=== PATIENT | female | born 1955 | race Caucasian/White ===

== ENCOUNTER 2022-02-01 05:32 | Outpatient (CLI) | payer MEDICARE ==
[~2022-02-01] VITALS: Ht 165.1 cm; Wt 84.0 kg
[2022-02-01] MEDS ORDERED: LEVO100C4 PO (16:30)
[2022-02-01] MEDS ORDERED: FURO20TA4 PO (16:30)
[2022-02-01] MEDS ORDERED: FOSI10TA PO (16:30)
[2022-02-01] MEDS ORDERED: FAMO20TA3 PO (16:30)
[2022-02-01] MEDS ORDERED: FLUT9.9S NS (16:30)
[2022-02-01] MEDS ORDERED: WARF6TAB49 PO (16:30)
[2022-02-01] MEDS ORDERED: NFD60TCR PO (16:30)
[2022-02-01] MEDS ORDERED: ATOR20TA66 PO (16:30)
[2022-02-01] MEDS ORDERED: MONT-40 PO (16:30)
== END 2022-02-01 16:37 | disposition home or self-care (01) ==
LOC: PREOP 05:32
PROVIDERS: ATTEND Podiatrist Foot & Ankle Surgery
DX: Z01.818 Encounter for other preprocedural examination (principal)

== ENCOUNTER 2022-02-07 07:25 | Day surgery (SDC) | payer MEDICARE ==
[~2022-02-07] VITALS: Ht 165.1 cm; Wt 84.0 kg
[2022-02-07] VITALS (11 sets, daily range): BP systolic 102–135; BP diastolic 53–85
[~2022-02-07 07:25] MED LIST: ATOR20TA66 PO; FAMO20TA3 PO; FLUT9.9S NS; FOSI10TA PO; FURO20TA4 PO; LEVO100C4 PO; MONT-40 PO; NFD60TCR PO; WARF6TAB49 PO
[2022-02-07] MEDS ORDERED: BUPIVACAINE 0.5% 30 ML (SENSORCAINE) VIAL ONE ×2 (07:43→08:11)
[2022-02-07] MEDS ORDERED: LIDOCAINE 1% INJ 20 ML VIAL ONE (07:43)
[2022-02-07] MEDS ORDERED: VANCOMYCIN INJECTION 1,000 MG in NS (IVPB) 250 ML IV ONE (07:45)
[2022-02-07] MEDS ORDERED: proPOfol 200 MG/20 ML (DIPRIVAN) VIAL IV ONE (07:58)
[2022-02-07] MEDS ORDERED: ONDANSETRON 4 MG/2 ML (SDV) Z0FRAN ONE (07:58)
[2022-02-07] MEDS ORDERED: LIDOCAINE PF 2% 5 ML (XYLOCAINE) VIAL ONE (07:58)
[2022-02-07] MEDS ORDERED: MIDAZOLAM 2 MG/2 ML (VERSED) VIAL ONE (07:58)
[2022-02-07] MEDS ORDERED: SEVOFLURANE (ULTANE) 15 ML INHAL SOLN ONE ×2 (07:58→10:27)
[2022-02-07] MEDS ORDERED: fentaNYL INJ 100 MCG/2 ML AMP ONE (07:58)
[2022-02-07] MEDS: LACTATED RINGERS 1,000 ML IV PRN ×2 (08:20→10:05)
--- NOTE | 2022-02-07 08:50 | Progress Note-Pre Operative ---
Pre-Operative Progress Note H&P Reviewed The H&P was reviewed, patient examined and no changes noted. Date Seen by Provider: Feb 07, 2022 Time Seen by Provider: 08:48 Date H&P Reviewed: Feb 07, 2022 Time H&P Reviewed: 08:48 Pre-Operative Diagnosis: Hallux Valgus, 2nd Hammertoe, left TERRELL,SILAS Q DPM Feb 07, 2022 08:50
[2022-02-07] MEDS ORDERED: BACITRACIN OINTMENT 28 GM TUBE ONE (09:20)
--- NOTE | 2022-02-07 10:39 | Progress Note-Post Operative ---
Post-Operative Progess Note Surgeon (s)/Pharmaceutical Analyst (s) Surgeon SILAS TEJADA DPM Pharmaceutical Analyst: none Pre-Operative Diagnosis Hallux Valgus, 2nd Hammertoe, left Post-Operative Diagnosis Same Procedure & Operative Findings Date of Procedure 02/07/22 Procedure Performed/Findings Kapil Bunionectomy, reduction of 2nd Hammertoe, left foot Anesthesia Type General Estimated Blood Loss Estimated blood loss (mL): Minimal Specimens/Packing Specimens Removed 1st metatarsal head exostosis SILAS TEJADA DPM Feb 07, 2022 10:39
[2022-02-07] MEDS ORDERED: ACHD5005 PO (10:42)
--- NOTE | 2022-02-07 10:44 | Anesthesia-General Post-Op ---
General Patient Condition Mental Status/LOC: Same as Preop Cardiovascular: Satisfactory Nausea/Vomiting: Absent Respiratory: Satisfactory Pain: Controlled Complications: Absent Post Op Complications Complications None Follow Up Care/Instructions Patient Instructions None needed. Anesthesia/Patient Condition Patient Condition Patient is doing well, no complaints, stable vital signs, no apparent adverse anesthesia problems. No complications reported per nursing. NICK SUMNER CRNA Feb 07, 2022 10:44
[2022-02-07] MEDS ORDERED: fentaNYL INJ 100 MCG/2 ML AMP IVP ONE (10:45)
[2022-02-07] MEDS ORDERED: LACTATED RINGERS 1,000 ML IV SCH (10:45)
[2022-02-07] MEDS ORDERED: morphine INJ 10 MG/ML 1ML (SYR OR VIAL) IVP ONE (10:45)
[2022-02-07] MEDS ORDERED: HYDROcodone/APAP 5 MG/325 MG (LORTAB) TAB PO PRN (10:45)
[2022-02-07] MEDS ORDERED: ONDANSETRON 4 MG/2 ML (SDV) Z0FRAN IVP PRN (10:45)
--- NOTE | 2022-02-07 11:45 | Physical Therapy Progress Note ---
Therapy Progress Note Patient and spouse declined PT intervention. Patient reports she is heel contact with CAM boot in place left foot and has a knee scooter, FWW and standard walker at home and has been practicing. Rn present. No PT indicated. 1 visit DUDLEY GLEASON PT Feb 07, 2022 11:45
[2022-02-07] MEDS ORDERED: HYDROcodone/APAP 5 MG/325 MG (LORTAB) TAB ONE (12:04)
--- NOTE | 2022-02-07 12:27 | Diagnostic Imaging Report ---
FINDINGS: 2 views. There is a K wire extending through the 2nd toe with the pin extending throughout the distal middle and proximal phalanges. There is good alignment of the toe. There is a bunionectomy noted with the pin present in the distal femoral head. IMPRESSION: 1. Postoperative findings of fusion of the 2nd toe and the bunionectomy of the 1st metatarsal. Dictated by: Dictated on workstation # [id number]
--- NOTE | 2022-02-07 19:39 | OPERATIVE REPORT ---
DATE OF SERVICE: 02/07/2022 SURGEON: Silas Tejada DPM. PREOPERATIVE DIAGNOSES: 1. Hallux abductovalgus metatarsus primus varus, left. 2. Hammertoe, left second digit. POSTOPERATIVE DIAGNOSES: 1. Hallux abductovalgus metatarsus primus varus, left. 2. Hammertoe, left second digit. 3. 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 PROCEDURES: 1. Modified Kapil bunionectomy, left. 2. Reduction of hammertoe, left second digit. WOUND CLASS: Clean. ANESTHESIA: General. HEMOSTASIS: Pneumatic thigh tourniquet at 300 mmHg. INDICATIONS: This 66-year-old female presents complaining of painful left foot. Conservative therapy was met with unsatisfactory results and the patient is agreeable to surgical intervention after risks and complications were discussed at length. No guarantees were extended to the patient and she is willing to proceed. DESCRIPTION OF PROCEDURE: The patient was brought back to the operating table, placed in secure supine position. Appropriate timeout was performed. A pneumatic thigh tourniquet was placed on the left lower extremity over several layers of padding. The left foot was anesthetized utilizing 10 mL of 0.5% Marcaine injected in Valdivia block as well as a block to the second digit. The left foot was then prepped and draped in the normal sterile manner. The left foot was then elevated, allowed to exsanguinate after which the tourniquet was inflated to 300 mmHg. Attention was then directed to the dorsal aspect of the first metatarsophalangeal joint where a 6 cm longitudinal linear incision was created. The incision was deepened in the same plane with great care to identify and retract all vital neurovascular structures. The incision was deepened down to the capsule where a longitudinal capsulotomy was performed, after which it was reflected demonstrating a hypertrophic dorsal and medial eminence to the first metatarsal head. These prominent areas of the first metatarsal were resected utilizing a power sagittal saw. Next, inspection to the first metatarsal head area indicated approximately 4 mm area devoid of articular cartilage with loose hyaline cartilage around the border of this lesion. The loose cartilage was sharply debrided after which a 1 mm drill was utilized to fenestrate the area of lack of cartilage. The wound was flushed with copious amounts of normal saline. Next, blunt dissection was carried out into the first intermetatarsal space where a lateral release was performed. The lateral capsule was released as well as the conjoint tendon of the adductor hallucis and the fibular sesamoidal ligament. The hallux was then forcibly adducted releasing any additional fibers holding in its abnormal position. Attention was redirected to the medial aspect of the first distal diaphysis of the first metatarsal and surgical neck where a Chevron-type osteotomy was performed. The capital fragment was translocated laterally and fixated in its corrected position utilizing a 0.062 threaded K-wire driven from dorsal proximal to plantar distal across the osteotomy with great care not to penetrate the articular cartilage. Care was cut, flushed with the dorsal aspect of the first metatarsal. The head of the first metatarsal was further contoured and smoothed with a power sagittal saw and power bur. The wound was flushed with copious amounts of normal saline. Excellent reduction of the hallux valgus as well as metatarsus primus deformity was appreciated at this time and closure was then performed in layers. Deep closure was performed with 3-0 Vicryl, superficial with 4-0 Vicryl, skin closure with 4-0 Prolene in a horizontal mattress type stitch. Attention was then directed to the rigidly contracted left second toe where a 4 cm longitudinal linear incision was created from the metatarsophalangeal joint to the distal interphalangeal joint of the digit. The incision was deepened in the same plane with great care to identify and retract all vital neurovascular structures. The incision was deepened down to the extensor tendon where a Z slide lengthening was performed overlying the proximal phalanx. This allowed access to the underlying bone and head of the proximal phalanx where the medial lateral collateral ligaments were released and the head of the proximal phalanx was fashioned into a peg with a power sagittal saw and power bur and a hole was created to the middle phalanx with a power bur. Next, a dorsal capsulorrhaphy was performed at the metatarsophalangeal joint, releasing the medial lateral collateral ligaments. Dorsal dissection was done with blunt dissection to the extensor scott, which was released sharply. This allowed the proximal phalanx to come down in more rectus alignment, but not entirely. A McGlamry elevator was then utilized to release plantar adhesions to the second metatarsal head. This allowed the proximal phalanx to come down into more appropriate alignment with rest of the lesser toes. The wounds were flushed with copious amounts of normal saline. Next, the arthrodesis site at the proximal interphalangeal joint was rearticulated. A 0.054 K-wire was driven down the digit holding the arthrodesis site in rectus alignment and overlying alignment of the toe was quite good at this time. The K-wire was cut at the end of the toe after which a protective ball was placed over the end of the wire. Closure was then performed in layers after the wound was flushed with copious amounts of normal saline. Deep closure was performed with a 3-0 Vicryl, superficial with 4-0 Vicryl, skin closure with 4-0 Prolene in a horizontal mattress type stitch. Postoperative injection consisted of an additional 16 mL of 0.5% Marcaine injected in a local infusion to the surgical sites. Postoperative dressings included bacitracin ointment, Adaptic, sterile 4 x 4, sterile Kerlix all secured with a Coban wrap. The patient tolerated the anesthesia and procedure well, was transported from the operating room to the recovery room with vital signs stable and vascular status intact to all digits of the left foot. She was given a prescription for doxycycline as well as hydrocodone. She is to follow up in my office in 10 days' period of time or sooner if necessary. Job ID: [id number] DocumentID: [id number] Dictated Date: 02/07/2022 10:57:35 Lumber Stacker Driver Date: 02/07/2022 19:39:02 Dictated By: SILAS TEJADA DPM
== END 2022-02-07 13:03 | disposition home or self-care (01) ==
LOC: SDC 07:25
PROVIDERS: ATTEND Podiatrist Foot & Ankle Surgery
DX: M20.12 Hallux valgus (acquired), left foot (principal); M20.42 Other hammer toe(s) (acquired), left foot; M19.042 Primary osteoarthritis, left hand; M24.575 Contracture, left foot
CPT/HCPCS: 28270; 28285; 28296; 73620; 87081; C1713